=== PATIENT | male | born 1975 | race Caucasian/White ===

== ENCOUNTER 2017-03-27 18:21 | Emergency (ER) | payer OTHER ==
--- NOTE | 2017-03-27 19:37 | ED ORDER SUMMARY ---
..... Patient: VERENICE MCGRAW OrderSheet [facility] VisitID: [id number] [address] [place] [address] 41y, M Registration Date/Time: 03/27/2017 ORDER SHEET Weight: 89.3 kg (stated) Allergies: No Known Drug Allergy GENERAL ORDERS: MEDICATION ORDERS: Tdap IM 0.5 mL (NOW) (19:07 03/27/2017 Oscar Wilson verbal order read back to Dayron ANNE) (19:08 Oscar R.NMirna) IV FLUIDS: ORDER SHEET NOTES: [Electronically signed by Pablo Kumari R.N. (19:54 03/27/2017)] [Electronically signed by Naye Camejo MD (01:42 04/04/2017)] [Electronically locked/signed by Pablo Kumari R.N. (19:54 03/27/2017)]
--- NOTE | 2017-03-27 19:37 | ED NURSING NOTES ---
Clinical Report - Nurses [address] [address] [place] [address] 03/27/2017 18:22 [id number] TRI[facility] Triage time 18:33 Mar 27 2017. Acuity: LEVEL 3. Chief Complaint: INJURY TO LEFT HAND. LIUDMILA COMA SCORE: Liudmila Coma Scale: 15- eyes open spontaneously (4); best verbal response- oriented x 4 (5); best motor response- obeys commands (6). --18:38 Fuentes Daly R.N. 18:33 03/27/17. BP: 149/111. HR: 92. RR: 18. O2 saturation: 98%. Temp: 98.3 F. Pain level now 7/10. --18:38 Fuentes Daly R.N. Weight: 89.3 kg stated. Height/Length: 72 inches Per Patient. BMI: 26.7. --18:38 Fuentes Dlay R.N. Medications MetFORMIN HCl Oral. --18:35 Fuentes Daly R.N. Gabapentin Oral. --18:35 Fuentes Daly R.N. Aspir-81 Oral. --18:35 Fuentes Daly R.N. Atorvastatin Calcium Oral. --18:35 Fuentes Daly R.N. Glimepiride Oral. --18:36 Fuentes Daly R.N. Albuterol Sulfate Oral. --18:36 Fuentes Daly R.N. Qvar Inhalation. --18:36 Fuentes Daly R.N. Allergies No Known Drug Allergy. --18:36 Fuentes Daly R.N. History Arrived by private vehicle. Historian: patient. Accompanied by family. This occurred just prior to arrival. He sustained a laceration from a knife. ( Was opening a package and it accidently cut him.). No neck pain, weakness or numbness. Treatment PSYCHIATRIC CLINICIAN: None. PAST MEDICAL HX: Diabetes mellitus. Hypertension. No history of heart disease or lung disease. Tetanus status: unknown. Immunizations: up-to-date. SOCIAL HX: Never smoker. Occasional alcohol use. No drug use. SELF HARM ASSESSMENT: A self harm assessment was performed. The patient answered "no" to the question "Have you recently felt down, depressed, or hopeless?" and "Do you have thoughts of harming or killing yourself?". FALL RISK ASSESSMENT: Fall risk assessment completed. No fall risk identified. NUTRITIONAL RISK ASSESSMENT: The nutritional risk assessment revealed no deficiencies. FUNCTIONAL ASSESSMENT: Functional assessment: no impairments noted. LEARNING NEEDS ASSESSMENT: The learning needs assessment revealed no barriers. ABUSE ASSESSMENT: Abuse assessment: (yes) The patient was asked "Do you feel safe in your home?". SKIN INTEGRITY ASSESSMENT: Skin integrity risk assessment completed. No skin integrity risk identified. --18:38 Fuentes Daly R.N. PROBLEMS: Immunizations. Tetanus Status. Last Tetanus. Back Pain. Contusion. --18:36 Fuentes Daly R.N. ADDITIONAL SURGERIES: no known surgeries. Interventions ID band on patient. --18:38 Fuentes Daly R.N. PHYSICAL ASSESSMENT GENERAL / NEURO / PSYCH: Oriented X 4. Appears in pain. EXTREMITIES: Capillary refill is less than 2 seconds in the extremities. Extremity pulses are within normal limits. Extremities exhibit normal ROM. Neuro-vascular status intact to the extremity. Left hand: laceration. SKIN: Skin intact. Skin is warm and dry. --18:39 Fuentes Daly R.N. NURSING PROGRESS NOTES The initial plan of care for this patient includes an assessment with efforts to address patient positioning, appropriate ambient lighting and comfortable environmental temperature; impairment of the integumentary system. Extremity elevated. Neuro-vascular extremity check. Reassurance given. Call light placed in reach. Side rails up x 1. Bed placed in lowest position. Brakes of bed on. --18:39 Fuentes Daly R.N. 19:07 03/27/2017 TDAP IM 0.5 mL given. (Lot#: [id number], expiration date: 09/04/2018, Stone Repairer: sanofi pasteur). Given in the left deltoid. Allergies verified and confirmed 5 rights. Vaccine information statement provided to the patient. --19:08 Ayad Alaniz R.N. ( Dressed wound with bacitracin and a bandage). --19:40 Mony Nassar, RADHA Tech1 19:18. WOUND REPAIR: Wound repair performed by ED physician. Assisted by one tech. The wound is located on the left thumb. Procedure: wound repaired with sutures. Post-procedure: he was stable, no complications and bleeding controlled. Total time of assist / procedure: 15 minutes. ( 1 suture pack used in repair). --19:54 Pablo Kumari R.N. 19:49. The patient is calm and resting quietly. GENERAL / NEURO / PSYCH: Alert. Oriented X 4. RESPIRATORY: No respiratory distress. EXTREMITIES: Neuro-vascular status intact to the extremity. SKIN: Skin is warm and dry. --19:52 Pablo Kumari R.N. DISPOSITION / DISCHARGE Departure time: 19:52. Condition at departure: stable. No learning barriers present. Discharge instructions provided and reviewed with the patient. Patient verbalized understanding. Written instructions provided in Paraguayan. The patient was discharged home and accompanied by timber incisor operator. He left the Emergency Department ambulatory and via private vehicle. [place] [employer] driving. FALL RISK ASSESSMENT: Fall risk assessment completed. No fall risk identified. --19:52 Pablo Kumari R.N. 19:49 03/27/17. BP: 135/87. HR: 86. RR: 14. O2 saturation: 98%. Pain level now: 0/10. --19:52 Pablo Kumari R.N. Locked/Released at 03/27/2017 19:54 by Pablo Kumari R.N.
--- NOTE | 2017-03-27 19:37 | ED CLINICAL REPORT ---
Clinical Report - Physicians/Mid Levels [facility] [address] [place] [address] 03/27/2017 18:22 Patient: VERENICE MCGRAW Time Seen: 18:34. Arrived- By private vehicle. Historian- patient. HISTORY OF PRESENT ILLNESS Chief Complaint: Injury to the left hand. The injury happened just prior to arrival. The patient sustained a laceration. Occurred at home. Patient is experiencing moderate pain. No other injury. REVIEW OF SYSTEMS The patient sustained a laceration. No swelling, tingling, numbness, weakness or foreign body. All systems otherwise negative, except as recorded above. PAST HISTORY Problems: Immunizations. Tetanus Status. Last Tetanus. Back Pain. Additional Surgeries: no known surgeries. Medications: Qvar Inhalation. Albuterol Sulfate Oral. Glimepiride Oral. Atorvastatin Calcium Oral. Aspir-81 Oral. Gabapentin Oral. MetFORMIN HCl Oral. Allergies: No Known Drug Allergy. SOCIAL HISTORY Never smoker. Occasional alcohol use. No drug use. ADDITIONAL NOTES The nursing notes have been reviewed. PHYSICAL EXAM Vital Signs: 03/27/2017 18:33 BP: 149/111. HR: 92. RR: 18. O2 saturation: 98%. Temp: 98.3 F. Have been reviewed. Appearance: Alert. Oriented X3. No acute distress. Head: Head atraumatic. Eyes: Eyes normal inspection. ENT: Nose normal. Neck: No decreased ROM in the neck. CVS: Pulses normal. Respiratory: No respiratory distress. Back: ROM normal. Skin: Skin warm and dry. Extremities: Left thumb: mild tenderness and subcutaneous 0.5 cm laceration of the volar and radial aspect and MCP joint. No erythema, swelling, abrasion, ecchymosis or puncture wound. No foreign body or deformity. No limitation in movement. No subungual hematoma or amputation present. No wrist injury. Hand and wrist exam otherwise negative. Extremities otherwise negative. Neuro, Vascular and Tendons: Vascular status intact. Sensation intact. Motor intact. Tendon function intact. Neuro: No motor deficit. No sensory deficit. (Patient is grossly oriented.). LABS, X-RAYS, AND EKG Pulse Oximetry: 03/27/2017 18:33 O2 saturation: 98%. (FIO2 - room air). Interpretation: normal. PROGRESS AND PROCEDURES Laceration Repair: Location: left thumb. Length: 0.5cm. Complexity: simple (sutured). Wound depth/shape- subcutaneous and linear. Wound is clean. Distal neuro/vascular/tendon status normal. Tendon examined. No tendon deficit. Local anesthesia provided using 1% lidocaine no epi. Prepped with Betadine. Wound explored, cleansed, irrigated and examined to the base in bloodless field with normal saline. Closure of superficial layer: interrupted 5-0 nylon (1 suture). Post-procedure: he is stable and there are no complications. Bleeding is controlled and neuro-vascular status is intact distal to the wound. Dressing applied. Tetanus immunization up-to-date. Patient counseled in person regarding the patient's stable condition, diagnosis and need for follow-up. Old medical records reviewed. Disposition: Discharged. Condition: stable and improved. CLINICAL IMPRESSION Single superficial laceration to the left thumb.No foreign body present or left fingernail injury. INSTRUCTIONS Apply ice for 15-20 minutes three times a day as needed and until better. Don't apply ice directly to skin. Protect wound and keep wound area clean. (Do not rub, scrub or immerse the wound until sutures are removed.). Change dressing daily. Apply bacitracin daily. Sutures should be removed in seven days. Warnings: GENERAL WARNINGS: Return or contact your physician immediately if your condition worsens or changes unexpectedly, if not improving as expected, or if other problems arise. Your Current Medications: CONTINUE TAKING THE FOLLOWING MEDICATIONS: Albuterol Sulfate Oral. Aspir-81 Oral. Atorvastatin Calcium Oral. Gabapentin Oral. Glimepiride Oral. MetFORMIN HCl Oral. Qvar Inhalation. Follow-up: Follow up with your doctor in seven days for suture removal. Understanding of the discharge instructions verbalized by patient and family. (Electronically signed by Naye Camejo MD 04/04/2017 1:42)
--- NOTE | 2017-03-27 19:37 | ED ORDER SUMMARY ---
..... Patient: VERENICE MCGRAW OrderSheet [facility] VisitID: [id number] [address] [place] [address] 41y, M Registration Date/Time: 03/27/2017 ORDER SHEET Weight: 89.3 kg (stated) Allergies: No Known Drug Allergy GENERAL ORDERS: MEDICATION ORDERS: Tdap IM 0.5 mL (NOW) (19:07 03/27/2017 Oscar Wilson verbal order read back to Dayron ANNE) (19:08 Oscar R.NMirna) IV FLUIDS: ORDER SHEET NOTES: [Electronically signed by Pablo Kumari R.N. (19:54 03/27/2017)] [Electronically signed by Naye Camejo MD (01:42 04/04/2017)] [Electronically locked/signed by Pablo Kumari R.N. (19:54 03/27/2017)]
--- NOTE | 2017-03-27 19:37 | ED NURSING NOTES ---
Clinical Report - Nurses [address] [address] [place] [address] 03/27/2017 18:22 [id number] Triage time 18:33 Mar 27 2017. Acuity: LEVEL 3. Chief Complaint: INJURY TO LEFT HAND. LIUDMILA COMA SCORE: Liudmila Coma Scale: 15- eyes open spontaneously (4); best verbal response- oriented x 4 (5); best motor response- obeys commands (6). --18:38 Fuentes Daly R.N. 18:33 03/27/17. BP: 149/111. HR: 92. RR: 18. O2 saturation: 98%. Temp: 98.3 F. Pain level now 7/10. --18:38 Fuentes Daly R.N. Weight: 89.3 kg stated. Height/Length: 72 inches Per Patient. BMI: 26.7. --18:38 Fuentes Daly R.N. Medications MetFORMIN HCl Oral. --18:35 Fuentes Daly R.N. Gabapentin Oral. --18:35 Fuentes Daly R.N. Aspir-81 Oral. --18:35 Fuentes Daly R.N. Atorvastatin Calcium Oral. --18:35 Fuentes Daly R.N. Glimepiride Oral. --18:36 Fuentes Daly R.N. Albuterol Sulfate Oral. --18:36 Fuentes Daly R.N. Qvar Inhalation. --18:36 Fuentes Daly R.N. Allergies No Known Drug Allergy. --18:36 Fuentes Daly R.N. History Arrived by private vehicle. Historian: patient. Accompanied by family. This occurred just prior to arrival. He sustained a laceration from a knife. ( Was opening a package and it accidently cut him.). No neck pain, weakness or numbness. Treatment DENTAL FLOSS PACKER: None. PAST MEDICAL HX: Diabetes mellitus. Hypertension. No history of heart disease or lung disease. Tetanus status: unknown. Immunizations: up-to-date. SOCIAL HX: Never smoker. Occasional alcohol use. No drug use. SELF HARM ASSESSMENT: A self harm assessment was performed. The patient answered "no" to the question "Have you recently felt down, depressed, or hopeless?" and "Do you have thoughts of harming or killing yourself?". FALL RISK ASSESSMENT: Fall risk assessment completed. No fall risk identified. NUTRITIONAL RISK ASSESSMENT: The nutritional risk assessment revealed no deficiencies. FUNCTIONAL ASSESSMENT: Functional assessment: no impairments noted. LEARNING NEEDS ASSESSMENT: The learning needs assessment revealed no barriers. ABUSE ASSESSMENT: Abuse assessment: (yes) The patient was asked "Do you feel safe in your home?". SKIN INTEGRITY ASSESSMENT: Skin integrity risk assessment completed. No skin integrity risk identified. --18:38 Fuentes Daly R.N. PROBLEMS: Immunizations. Tetanus Status. Last Tetanus. Back Pain. Contusion. --18:36 Fuentes Daly R.N. ADDITIONAL SURGERIES: no known surgeries. Interventions ID band on patient. --18:38 Fuentes Daly R.N. PHYSICAL ASSESSMENT GENERAL / NEURO / PSYCH: Oriented X 4. Appears in pain. EXTREMITIES: Capillary refill is less than 2 seconds in the extremities. Extremity pulses are within normal limits. Extremities exhibit normal ROM. Neuro-vascular status intact to the extremity. Left hand: laceration. SKIN: Skin intact. Skin is warm and dry. --18:39 Fuentes Daly R.N. NURSING PROGRESS NOTES The initial plan of care for this patient includes an assessment with efforts to address patient positioning, appropriate ambient lighting and comfortable environmental temperature; impairment of the integumentary system. Extremity elevated. Neuro-vascular extremity check. Reassurance given. Call light placed in reach. Side rails up x 1. Bed placed in lowest position. Brakes of bed on. --18:39 Fuentes Daly R.N. 19:07 03/27/2017 TDAP IM 0.5 mL given. (Lot#: [id number], expiration date: 09/04/2018, Operations And Maintenance Technician: sanofi pasteur). Given in the left deltoid. Allergies verified and confirmed 5 rights. Vaccine information statement provided to the patient. --19:08 Ayad Alaniz R.N. ( Dressed wound with bacitracin and a bandage). --19:40 Mony Nassar, RADHA Tech1 19:18. WOUND REPAIR: Wound repair performed by ED physician. Assisted by one tech. The wound is located on the left thumb. Procedure: wound repaired with sutures. Post-procedure: he was stable, no complications and bleeding controlled. Total time of assist / procedure: 15 minutes. ( 1 suture pack used in repair). --19:54 Pablo Kumari R.N. 19:49. The patient is calm and resting quietly. GENERAL / NEURO / PSYCH: Alert. Oriented X 4. RESPIRATORY: No respiratory distress. EXTREMITIES: Neuro-vascular status intact to the extremity. SKIN: Skin is warm and dry. --19:52 Pablo Kumari R.N. DISPOSITION / DISCHARGE Departure time: 19:52. Condition at departure: stable. No learning barriers present. Discharge instructions provided and reviewed with the patient. Patient verbalized understanding. Written instructions provided in Kyrgyz. The patient was discharged home and accompanied by branch assistant. He left the Emergency Department ambulatory and via private vehicle. Oil Spraying Machine Operator driving. FALL RISK ASSESSMENT: Fall risk assessment completed. No fall risk identified. --19:52 Pablo Kumari R.N. 19:49 03/27/17. BP: 135/87. HR: 86. RR: 14. O2 saturation: 98%. Pain level now: 0/10. --19:52 Pablo Kumari R.N. Locked/Released at 03/27/2017 19:54 by Pablo Kumari R.N.
--- NOTE | 2017-04-04 01:42 | ED DISCHARGE INSTRUCTIONS ---
Patient: VERENICE MCGRAW General Instructions [facility] VisitID: [id number] [place] [address] 41y, M Registration Date/Time: 03/27/2017 Single superficial laceration to the left thumb.No foreign body present or left fingernail injury. INSTRUCTIONS Apply ice for 15-20 minutes three times a day as needed and until better. Don't apply ice directly to skin. Protect wound and keep wound area clean. (Do not rub, scrub or immerse the wound until sutures are removed.). Change dressing daily. Apply bacitracin daily. Sutures should be removed in seven days. Warnings: GENERAL WARNINGS: Return or contact your physician immediately if your condition worsens or changes unexpectedly, if not improving as expected, or if other problems arise. Your Current Medications: CONTINUE TAKING THE FOLLOWING MEDICATIONS: Albuterol Sulfate Oral. Aspir-81 Oral. Atorvastatin Calcium Oral. Gabapentin Oral. Glimepiride Oral. MetFORMIN HCl Oral. Qvar Inhalation. Follow-up: Follow up with your doctor in seven days for suture removal. Understanding of the discharge instructions verbalized by patient and family. ADDITIONAL INFORMATION Laceration, Extremity (Sutures, Antimony, Or Tape) A laceration is a cut through the skin. This will usually require stitches (sutures) or hector if it is deep. Minor cuts may be treated with surgical tape closures. Home care The following guidelines will help you care for your laceration at home: Keep the wound clean and dry. If a bandage was applied and it becomes wet or dirty, replace it. Otherwise, leave it in place for the first 24 hours, then change it once a day or as directed. If stitches or hector were used, clean the wound daily: After removing the bandage, wash the area with soap and water. Use a wet cotton swab to loosen and remove any blood or crust that forms. After cleaning, keep the wound clean and dry. Talk with your doctor before applying any antibiotic ointment to the wound. Reapply the bandage. You may remove the bandage to shower as usual after the first 24 hours, but do not soak the area in water (no swimming) until the stitches or hector are removed. If surgical tape closures were used, keep the area clean and dry. If it becomes wet, blot it dry with a towel. The doctor may prescribe an antibiotic cream or ointment to prevent infection. Do not stop taking this medication until you have finished the prescribed course or the doctor tells you to stop. The doctor may also prescribe medications for pain. Follow the doctors instructions for taking these medications. If you have chronic liver or kidney disease or ever had a stomach ulcer or GI bleeding, talk with your doctor before using these medicines. Follow-up care Follow up with your health care provider. Most skin wounds heal within ten days. However, an infection may sometimes occur despite proper treatment. Therefore, check the wound daily for the signs of infection listed below. Stitches and hector should be removed within 714 days. If surgical tape closures were used, you may remove them after 10 days, if they have not fallen off by then. Notify your doctor if you notice persistent numbness or weakness in the injured extremity. (Note:A radiologist will review any X-rays that were taken. We will notify you of any new findings that may affect your care.) When to seek medical care Get prompt medical attention if any of these occur: Increasing pain in the wound Redness, swelling, or pus coming from the wound Fever of 100.4F (38C) or higher, or as directed by your health care provider If stitches or hector come apart or fall out before your next appointment If the surgical tape closures fall off within seven days, or the wound edges re-open Bleeding not controlled by direct pressure You have been given the following additional information: Laceration, Extrem (Suture, Staple, Or Tape) (Electronically signed by Naye Camejo MD 04/04/2017 1:42)
--- NOTE | 2017-04-04 01:42 | ED MAR SUMMARY ---
..... Medication Administration Record [address] [place] [address] Patient: VERENICE MCGRAW Visit ID: [id number] 41y, M Weight: 89.3 kg Height/Length: 72 in BMI: 26.7 ALLERGIES: No Known Drug Allergy Given 19:07 03/27/2017 Ayad Alaniz R.N. Medication Administered: TDAP [IM], Dose: 0.5 mL IM. Medication Ordered: Tdap IM 0.5 mL (NOW).
--- NOTE | 2017-04-04 01:42 | ED MED RECONCILIATION SUMMARY ---
Patient: VERENICE MCGRAW Medication Reconciliation Report [facility] VisitID: [id number] [address] [place] [address] 41y, M Registration Date/Time: 03/27/2017 Weight: 89.3 kg Height/Length: 72 in. BMI: 26.7 ALLERGIES: No Known Drug Allergy The patient's Home Medications are listed below: CONTINUE TAKING THE FOLLOWING MEDICATIONS: Albuterol Sulfate Oral Aspir-81 Oral Atorvastatin Calcium Oral Gabapentin Oral Glimepiride Oral MetFORMIN HCl Oral Qvar Inhalation The source(s) of the original Home Medication information: Not obtained. The following Medications were given to the patient in the Emergency Department: TDAP [IM] IM 0.5 mL, administered: 03/27/2017 7:07:00 PM The following Medications were prescribed to the patient: None.
--- NOTE | 2017-04-04 01:42 | ED MAR SUMMARY ---
..... Medication Administration Record [facility] [address] [place] [address] Patient: VERENIEC MCGRAW Visit ID: [id number] 41y, M Weight: 89.3 kg Height/Length: 72 in BMI: 26.7 ALLERGIES: No Known Drug Allergy Given 19:07 03/27/2017 Ayad Alaniz R.N. Medication Administered: TDAP [IM], Dose: 0.5 mL IM. Medication Ordered: Tdap IM 0.5 mL (NOW).
--- NOTE | 2017-04-04 01:42 | ED MED RECONCILIATION SUMMARY ---
Patient: VERENICE MCGRAW Medication Reconciliation Report [facility] VisitID: [id number] [address] [place] [address] 41y, M Registration Date/Time: 03/27/2017 Weight: 89.3 kg Height/Length: 72 in. BMI: 26.7 ALLERGIES: No Known Drug Allergy The patient's Home Medications are listed below: CONTINUE TAKING THE FOLLOWING MEDICATIONS: Albuterol Sulfate Oral Aspir-81 Oral Atorvastatin Calcium Oral Gabapentin Oral Glimepiride Oral MetFORMIN HCl Oral Qvar Inhalation The source(s) of the original Home Medication information: Not obtained. The following Medications were given to the patient in the Emergency Department: TDAP [IM] IM 0.5 mL, administered: 03/27/2017 7:07:00 PM The following Medications were prescribed to the patient: None.
== END 2017-03-27 19:52 | disposition home or self-care (01) ==
LOC: ED SRH 18:21
DX: S61.012A Laceration without foreign body of left thumb without damage to nail, initial encounter (principal); X58.XXXA Exposure to other specified factors, initial encounter; Y93.9 Activity, unspecified; Y92.9 Unspecified place or not applicable; Z79.51 Long term (current) use of inhaled steroids; Z79.84 Long term (current) use of oral hypoglycemic drugs; Z79.82 Long term (current) use of aspirin; Z79.899 Other long term (current) drug therapy; Z23 Encounter for immunization